=== PATIENT | female | born 1985 | race Caucasian/White ===

== ENCOUNTER → 2017-11-20 | Outpatient (CLI) | payer OTHER ==
[2006-03-31 03:59] VITALS: TEMP 99
[~2017-11-20] MED LIST: IBU800 M1 PO; LORTAB PO; benadryl
== END ==
LOC: MC.RAD 12:48
DX: N64.52 Nipple discharge (principal); N60.12 Diffuse cystic mastopathy of left breast; N60.11 Diffuse cystic mastopathy of right breast